=== PATIENT | male | born 1960 | race African-American/Black ===

== ENCOUNTER 2019-11-19 14:50 | Emergency (ER) | payer BC ==
[~2019-11-19] VITALS: Ht 182.9 cm; Wt 100.0 kg
[2019-11-19 15:00] VITALS: BP 161/102
[2019-11-19] MEDS ORDERED: HYDROcodone/APAP 5/325MG 1 TAB TABLET PO ONE (15:30)
--- NOTE | 2019-11-19 15:36 | PHYS DOC ---
Past Medical History Past Medical History: High Cholesterol, Hypertension Additional Past Surgical Histo: rotator cuff Smoking Status: Never Smoker Alcohol Use: None General Adult EDM: Chief Complaint: LACERATION/AVULSION HPI: HPI: Patient is a 59 year old male who presents with was walking up the stairs when he tripped and fell in his kitchen by the sink. He hit his face. He did have some blood coming from his nostril but it is dried up. Patient has a 1 cm superficial laceration to the left eyebrow. He has a 2 cm superficial cut under the left eye. Abrasion to bridge of nose. Bleeding is controlled. Patient denies LOC, headache, dizziness, nausea, vomiting, abdominal pain, neck pain, back pain, extremity pain, joint pain. He states he is not on blood thinners. Patient rates his pain a 9 out of 10. Review of Systems: Review of Systems: HENT: Denies nasal congestion or sore throat. Nose swelling and eye swelling. [] Integument: 2 superficial lacerations. Denies rash. [] Heart Score: Risk Factors: Risk Factors: DM, Current or recent (<one month) smoker, HTN, HLP, family history of CAD, obesity. Risk Scores: Score 0 - 3: 2.5% MACE over next 6 weeks - Discharge Home Score 4 - 6: 20.3% MACE over next 6 weeks - Admit for Clinical Observation Score 7 - 10: 72.7% MACE over next 6 weeks - Early Invasive Strategies Current Medications: Current Medications Medications (Trade) Dose Ordered Sig/[facility] Start Time Stop Time Status Last Admin Dose Admin Acetaminophen/ Hydrocodone Bitart (Lortab 5/325) 1 tab 1X ONCE 11/19/19 15:30 11/19/19 15:31 Allergies: Allergies: Allergies Coded Allergies Type Severity Reaction Last Updated Verified Sulfa (Sulfonamide Antibiotics) Allergy Unknown 11/19/19 Yes Physical Exam: PE: Constitutional: Well developed, well nourished, no acute distress, non-toxic appearance. [] HENT: Normocephalic, atraumatic, bilateral external ears normal, oropharynx moist, no oral exudates, nose swollen and tender to bridge of nose with blood in left nare. Patient can still breathe out of nose. [] Eyes: PERRLA, EOMI, conjunctiva normal, no discharge. Swelling around left eye. [] Neck: Normal range of motion, no tenderness, supple, no stridor. [] Cardiovascular:Heart rate regular rhythm, no murmur [] Lungs & Thorax: Bilateral breath sounds clear to auscultation [] Abdomen: Bowel sounds normal, soft, no tenderness, no masses, no pulsatile masses. [] Skin: Warm, dry, no erythema, no rash. 2 superficial lacerations to left eyebrow and under the eye. Abrasion to bridge of nose. [] Back: No tenderness, no CVA tenderness. [] Extremities: No tenderness, no cyanosis, no clubbing, ROM intact, no edema. [] Neurologic: Alert and oriented X 3, normal motor function, normal sensory function, no focal deficits noted. [] Psychologic: Affect normal, judgement normal, mood normal. [] Current Patient Data: Vital Signs: Vital Signs Date Time Temp Pulse Resp B/P (MAP) Pulse Ox O2 Delivery O2 Flow Rate FiO2 11/19/19 15:00 98.5 97 16 161/102 (121) 94 Room Air 98.5 EKG: EKG: [] Radiology/Procedures: Radiology/Procedures: [] Impression: [facility] [address] [place] [address] IMAGING REPORT Signed PATIENT: REN PENA ACCOUNT: [id number] : 1960 LOCATION: ER AGE: 59 SEX: M EXAM STATUS: REG ER ORD. PHYSICIAN: NELLA BAUTISTA APRN REASON: fall and hit face today. PROCEDURE: CT HEAD AND MAXILLOFACIAL WO Examination: CT head and maxillofacial bones without contrast CT HEAD INDICATION: History of fall, facial injury COMPARISON: None Available. Exposure: One or more of the following individualized dose reduction techniques were utilized for this examination: 1. Automated exposure control 2. Adjustment of the mA and/or kV according to patient size 3. Use of iterative reconstruction technique TECHNIQUE: 5 mm contiguous axial images were obtained from the skull base to the vertex in both bone and soft tissue algorithm. FINDINGS: No abnormal attenuation within the brain parenchyma. No evidence of acute intracranial hemorrhage. No extra-axial fluid collections. No mass effect or midline shift. Ventricular size is appropriate. Basal cisterns are patent. .Marte-white differentiation is preserved. The mastoid air cells are clear. Comminuted mild displaced fractures of the bilateral nasal bones identified. There is depressed fracture of the medial left orbital wall with opacification of the left ethmoidal sinuses. The intraorbital fat is maintained. Mild left orbital wall proptosis is identified. Mild soft tissue swelling identified anterior to the left orbital globe. IMPRESSION: 1. Depressed fracture of the medial left orbital wall. 2. Comminuted mild displaced fractures of the bilateral nasal bones. 3. No acute intracranial findings. Electronically signed by: Brown Tanner MD (11/19/2019 4:09 PM) [id number] DICTATED and SIGNED BY: BROWN TANNER MD DATE: 11/19/191608 Course & Med Decision Making: Course & Med Decision Making Pertinent Labs and Imaging studies reviewed. (See chart for details) Patient's left eye is swollen shut. Patient has dried blood in his right nostril. Patient is tenderness to his nasal bridge of his nose and 2+ swelling to his nose. No basilar skull signs. Full range of motion of the neck and no tenderness to his neck or back. Ambulatory with a steady gait. Speaks in full clear sentences. No mouth injury and he did not bite his tongue and there is no missing teeth or broken teeth. No drainage coming from his ears. PERRLA. Patient denied any tenderness to the left eye orbit with palpation. No deformities to his face or head is seen. Patient has no extra oculatar eye motion tenderness and can move his eyes around equally and without difficulty. Patient's lacerations are as described in HPI. They are both cleaned with saline and chlorhexidine and Dermabond shut. No foreign bodies. Edges are approximated. Denies any vision changes. Patient to follow up with ENT as soon as possible. He is educated to sleep 45 [address] I will place the patient on Antibiotic. I have spoken to Dr Ken concerning this patient and the care plan. I Dillan Disclaimer: Dillan Disclaimer: This electronic medical record was generated, in whole or in part, using a voice recognition dictation system. Departure Departure Impression: Primary Impression: Laceration Additional Impressions: Orbit fracture, left Qualified Codes: S02.85XA - Fracture of orbit, unspecified, initial encounter for closed fracture Nasal bone fracture Qualified Codes: S02.2XXA - Fracture of nasal bones, initial encounter for closed fracture Disposition: HOME, SELF-CARE Condition: STABLE Referrals: BENI RUFFIN MD (PCP) Patient Instructions: Facial Laceration, [id number], Nasal Fracture, [id number], Orbital Floor Fracture, Non-Blowout Additional Instructions: Follow up with ENT as soon as possible. Sit and sleep at 45 degrees up. Take medications with food and as prescribed. Use Saline nasal spray for any dried blood. Do not blow your nose. Scripts Amoxicillin (AMOXICILLIN) 500 Mg Capsule 1 CAP PO BID for 10 Days, #20 CAP Prov: NELLA BAUTISTA APRN 11/19/19 Hydrocodone/Apap 5-325 (NORCO 5-325 TABLET) 1 Each Tablet 1 TAB PO PRN Q6HRS PRN for PAIN, #12 TAB 0 Refills Prov: NELLA BAUTISTA APRN 11/19/19 NELLA BAUTISTA APRN Nov 19, 2019 15:35
--- NOTE | 2019-11-19 16:12 | RAD ---
Examination: CT head and maxillofacial bones without contrast CT HEAD INDICATION: History of fall, facial injury COMPARISON: None Available. Exposure: One or more of the following individualized dose reduction techniques were utilized for this examination: 1. Automated exposure control 2. Adjustment of the mA and/or kV according to patient size 3. Use of iterative reconstruction technique TECHNIQUE: 5 mm contiguous axial images were obtained from the skull base to the vertex in both bone and soft tissue algorithm. FINDINGS: No abnormal attenuation within the brain parenchyma. No evidence of acute intracranial hemorrhage. No extra-axial fluid collections. No mass effect or midline shift. Ventricular size is appropriate. Basal cisterns are patent. .Marte-white differentiation is preserved. The mastoid air cells are clear. Comminuted mild displaced fractures of the bilateral nasal bones identified. There is depressed fracture of the medial left orbital wall with opacification of the left ethmoidal sinuses. The intraorbital fat is maintained. Mild left orbital wall proptosis is identified. Mild soft tissue swelling identified anterior to the left orbital globe. IMPRESSION: 1. Depressed fracture of the medial left orbital wall. 2. Comminuted mild displaced fractures of the bilateral nasal bones. 3. No acute intracranial findings. Electronically signed by: Brown Tanner MD (11/19/2019 4:09 PM) [id number]
[2019-11-19] MEDS ORDERED: HYDR-3164 PO (16:25)
[2019-11-19] MEDS ORDERED: AMOX500C PO (16:25)
[2019-11-19] MEDS ORDERED: OXYMETAZOLINE 0.05% NASAL SPRAY 30ML BOTTLE. NS ONE (16:45)
[2019-11-19] MEDS ORDERED: DIPH,PERTUSS(ACELL),TET VAC/PF 0.5 ML SYRINGE. VAX IM ONE (16:45)
== END 2019-11-19 16:57 | disposition home or self-care (01) ==
LOC: ER 14:50
DX: S02.2XXA Fracture of nasal bones, initial encounter for closed fracture (principal); S02.85XA Fracture of orbit, unspecified, initial encounter for closed fracture; S01.112A Laceration without foreign body of left eyelid and periocular area, initial encounter; E78.00 Pure hypercholesterolemia, unspecified; I10 Essential (primary) hypertension; Z98.890 Other specified postprocedural states; Z88.2 Allergy status to sulfonamides; W01.0XXA Fall on same level from slipping, tripping and stumbling without subsequent striking against object, initial encounter; Y93.89 Activity, other specified; Y92.89 Other specified places as the place of occurrence of the external cause; Y99.8 Other external cause status
CPT/HCPCS: 12013; 70450; 70486; 90471; 90715; 99285